=== PATIENT | male | born 2000 | race Caucasian/White ===

== ENCOUNTER 2019-03-28 15:15 | Emergency (ER) | payer SELFPAY, OTHER ==
[2019-03-28] MEDS: TETRACAINE 0.5% 4 ML OPH RIGHT EYE (17:14)
[2019-03-28] MEDS: FLUORESCEIN STRIP RIGHT EYE (17:14)
== END 2019-03-28 18:45 | disposition home or self-care (01) ==
LOC: FTE 15:15
DX: S05.11XA Contusion of eyeball and orbital tissues, right eye, initial encounter (principal); S05.01XA Injury of conjunctiva and corneal abrasion without foreign body, right eye, initial encounter; X58.XXXA Exposure to other specified factors, initial encounter; Y92.9 Unspecified place or not applicable
CPT/HCPCS: 99283